=== PATIENT | female | born 1985 | race Caucasian/White ===

== ENCOUNTER 2016-09-09 10:26 | Emergency (ER) | payer MEDICAID ==
[~2016-09-09] VITALS: Ht 188 cm; Wt 110.5 kg
[2016-09-09 10:33] VITALS: BP 134/82; TEMP 98.5
[2016-09-09] MEDS ORDERED: AMOXICILLIN 50500 MG PO (11:44)
[2016-09-09 11:53] VITALS: PULSE 74
== END 2016-09-09 11:55 | disposition home or self-care (01) ==
LOC: COL.ER 10:26
DX: J02.0 Streptococcal pharyngitis (principal); F17.210 Nicotine dependence, cigarettes, uncomplicated